=== PATIENT | female | born 1985 | race Caucasian/White ===

== ENCOUNTER 2016-10-22 15:24 | Emergency (ER) | payer OTHER ==
[~2016-10-22] VITALS: Ht 162.6 cm; Wt 56.7 kg
[2016-10-22 16:20] LABS: BASOPHILS % (AUTO) 0.6 % (0.0-2.0); DIFF TOTAL % 100 %; EOSINOPHILS % (AUTO) 0.7 % (0.0-6.0); HEMATOCRIT 37 % (33-45); HEMOGLOBIN 12.4 g/dL (11.5-14.8); LYMPHOCYTES % (AUTO) 29.4 % (20.0-44.0); MEAN CORPUSCULAR HEMOGLOBIN 32 PG (26.0-33.0); MEAN CORPUSCULAR HGB CONC 34 g/dl (31.0-36.0); MEAN CORPUSCULAR VOLUME 95 fL (82-100); MONOCYTES # (AUTO) 0.4 /CMM (0.1-1.30); MONOCYTES % (AUTO) 5.9 % (2.0-12.0); NEUTROPHILS # (AUTO) 4.5 /CMM (1.8-8.9); NEUTROPHILS % (AUTO) 63.4 % (43.0-81.0); PLATELET COUNT (AUTO) 275 /CMM (150-450); RED BLOOD CELL COUNT(AUTO) 3.92 MIL/uL (4.0-5.2); WHITE BLOOD COUNT (AUTO) 6.9 K/uL (4.3-11.0)
[2016-10-22 16:40] LABS: CALCIUM, SERUM 8.6 mg/dL (8.5-10.1); CREATININE 0.8 mg/dL (0.6-1.3); POTASSIUM 3.3 mmol/L (3.5-5.1)
[2016-10-22 17:10] VITALS: BP 121/66
== END 2016-10-22 17:11 | disposition home or self-care (01) ==
LOC: ER 15:27
DX: G40.409 Other generalized epilepsy and epileptic syndromes, not intractable, without status epilepticus (principal)
CPT/HCPCS: 36415; 80048; 84703; 85025; 93005; 99285; A4606; Z7610

== ENCOUNTER 2017-09-02 15:31 | Emergency (ER) | payer OTHER ==
[~2017-09-02] VITALS: Ht 162.6 cm; Wt 56.2 kg
--- NOTE | 2017-09-02 15:45 | NUR ---
BIB [facility] C/O WITNESSED FULL TONIC CLONIC SEIZURE, NO ORAL TRAUMA OR URINARY INCONTINENCE. NAD NOTED, VSS, RESP EVEN AND UNLABORED, SKIN WARM AND DRY, SEIZURE PRECAUTION IMPLEMENTED, WAITING FOR MD PERALTA.
[2017-09-02 16:01] VITALS: BP 111/65
[2017-09-02 16:02] LABS: BASOPHILS % (AUTO) 0.3 % (0.0-2.0); EOSINOPHILS # (AUTO) 0.1 /CMM (0.0-0.7); EOSINOPHILS % (AUTO) 0.9 % (0.0-6.0); HEMATOCRIT 37 % (33-45); HEMOGLOBIN 12.8 g/dL (11.5-14.8); LYMPHOCYTES # (AUTO) 1.9 /CMM (0.8-4.8); LYMPHOCYTES % (AUTO) 27.9 % (20.0-44.0); MEAN CORPUSCULAR HEMOGLOBIN 33 PG (26.0-33.0); MEAN CORPUSCULAR HGB CONC 35 g/dl (31.0-36.0); MEAN CORPUSCULAR VOLUME 94 fL (82-100); MONOCYTES # (AUTO) 0.4 /CMM (0.1-1.30); MONOCYTES % (AUTO) 6.5 % (2.0-12.0); NEUTROPHILS # (AUTO) 4.3 /CMM (1.8-8.9); NEUTROPHILS % (AUTO) 64.4 % (43.0-81.0); PLATELET COUNT (AUTO) 261 /CMM (150-450); RDW COEFFICIENT OF VARIATION 12.1 (11.5-15.0); RED BLOOD CELL COUNT(AUTO) 3.92 MIL/uL (4.0-5.2); WHITE BLOOD COUNT (AUTO) 6.7 K/uL (4.3-11.0)
--- NOTE | 2017-09-02 16:15 | NUR ---
URINE SENT TO LAB
[2017-09-02 16:22] LABS: CALCIUM, SERUM 9.1 mg/dL (8.5-10.1); CREATININE 0.8 mg/dL (0.6-1.3); POTASSIUM 3.7 mmol/L (3.5-5.1)
[2017-09-02 16:28] LABS: ALBUMIN 3.9 g/dL (3.4-5.0); BILIRUBIN,TOTAL 0.3 mg/dL (0.2-1.0); TOTAL PROTEIN, SERUM 7.3 g/dL (6.4-8.2)
[2017-09-02 16:31] LABS: APPEARANCE,URINE SL CLOUDY (CLEAR); BILIRUBIN,URINE NEGATIVE (NEGATIVE); BLOOD, URINE NEGATIVE Ery/uL (NEGATIVE); COLOR,URINE YELLOW (YELLOW); KETONES,URINE NEGATIVE (NEGATIVE); LEUKOCYTE ESTERASE ,URINE NEGATIVE (NEGATIVE); NITRITE, URINE NEGATIVE (NEGATIVE); PROTEIN,URINE NEGATIVE (NEGATIVE); UGLUCOSE NEGATIVE (NEGATIVE); UROBILINOGEN,URINE 0.2 EU/dL (0.2)
[2017-09-02] MEDS ORDERED: LamoTRIgine 25 MG TABLET PO STA (17:14)
[2017-09-02] MEDS ORDERED: LamoTRIgine 100 MG TABLET PO STA (17:24)
== END 2017-09-02 17:56 | disposition home or self-care (01) ==
LOC: ER 15:32
DX: R56.9 Unspecified convulsions (principal)
CPT/HCPCS: 36415; 80053; 81001; 85025; 93005; 99285; A4606; Z7610; 81000-TC

== ENCOUNTER 2018-06-14 18:22 | Emergency (ER) | payer OTHER ==
[~2018-06-14] VITALS: Ht 154.9 cm; Wt 54.4 kg
--- NOTE | 2018-06-14 18:30 | NUR ---
BIBRA: FOUND LYING ON SIDEWALK, LIKELY S/P UNWITNESSED SZ, WAS POSTICTAL PER EMS. NOW A/OX4. SMALL ABRASION TO L KNEE. BREATHING EVEN AND UNLABORED. NO SOB, NAD, VITALS STABLE. SAFETY AND COMFORT MEASURES IN PLACE. AWAITING MD ORDERS.
--- NOTE | 2018-06-14 19:06 | NUR ---
REPORT GIVEN TO MITCHELL SALINAS FOR JOSE ELIAS
[2018-06-14] MEDS: LEVETIRACETAM (500MG) 500 MG in IV NS 0.9% 100 ML IV SCH (19:30)
[2018-06-14] MEDS ORDERED: LEVETIRACETAM (500MG) 500 MG/5 ML VIAL IV ONE (19:35)
[2018-06-14 19:43] LABS: BASOPHILS % (AUTO) 0.7 % (0.0-2.0); EOSINOPHILS % (AUTO) 0.9 % (0.0-6.0); HEMATOCRIT 39 % (33-45); HEMOGLOBIN 13.2 g/dL (11.5-14.8); LYMPHOCYTES # (AUTO) 1.1 /CMM (0.8-4.8); LYMPHOCYTES % (AUTO) 16.9 % (20.0-44.0); MEAN CORPUSCULAR HEMOGLOBIN 32 PG (26.0-33.0); MEAN CORPUSCULAR HGB CONC 34 g/dl (31.0-36.0); MEAN CORPUSCULAR VOLUME 94 fL (82-100); MONOCYTES # (AUTO) 0.3 /CMM (0.1-1.30); MONOCYTES % (AUTO) 4.6 % (2.0-12.0); NEUTROPHILS # (AUTO) 4.8 /CMM (1.8-8.9); NEUTROPHILS % (AUTO) 76.9 % (43.0-81.0); PLATELET COUNT (AUTO) 321 /CMM (150-450); RDW COEFFICIENT OF VARIATION 11.6 (11.5-15.0); RED BLOOD CELL COUNT(AUTO) 4.13 MIL/uL (4.0-5.2); WHITE BLOOD COUNT (AUTO) 6.3 K/uL (4.3-11.0)
[2018-06-14 19:52] LABS: CALCIUM, SERUM 8.8 mg/dL (8.5-10.1); POTASSIUM 3.6 mmol/L (3.5-5.1)
--- NOTE | 2018-06-14 19:54 | NUR ---
PATIENT REFUSED KEPPRA MEDICATION. NOTIFIED
--- NOTE | 2018-06-14 20:34 | NUR ---
Patient discharged to home in stable condition. Written and verbal after care instructions given. Patient verbalizes understanding of instruction. IV removed. Catheter intact and site benign. Pressure and 4x4 applied to site. No bleeding noted. AMBULATED WITH STABLE GAIT UPON DC
[2018-06-14 20:35] VITALS: BP 119/80
== END 2018-06-14 20:36 | disposition home or self-care (01) ==
LOC: ER 18:26
DX: G40.909 Epilepsy, unspecified, not intractable, without status epilepticus (principal); S80.212A Abrasion, left knee, initial encounter; W18.39XA Other fall on same level, initial encounter; Y93.01 Activity, walking, marching and hiking; Y92.098 Other place in other non-institutional residence as the place of occurrence of the external cause; Y99.8 Other external cause status
CPT/HCPCS: 36415; 80048-TC; 85025-TC; A4606; J1953; J7030; Z7610